=== PATIENT | male | born 1965 | race Caucasian/White ===

== ENCOUNTER 2020-05-03 09:10 | Day surgery (SDC) | payer MEDICARE ==
[~2020-05-03] VITALS: Ht 434.3 cm; Wt 76.9 kg
[~2020-05-03 09:10] MED LIST: BACL10 PO; CEPH500 PO; FAMO40 PO; HYDACE5 PO; IBU800 MG PO; IBUP600 PO; IBUP800 PO; MECL25 PO; NAPR500 PO; PERM5TC TOP; PRED20 PO; PROM25 PO; TRAM50 PO
--- NOTE | 2020-05-03 10:17 | NUR ---
Patient up to Ambulate independently. Gait steady. Patient states colon prep results clear. History, Chart, Medications and Allergies reviewed before start of procedure.Lungs clear T/O to Auscultation. Patient confirms NPO status and agrees with scheduled surgery. Patient States Post-Procedure ride home has been arranged FROM [facility].
--- NOTE | 2020-05-03 10:36 | NUR ---
05/03/20 1036 HoracioEnrique PATIENT DETERMINED TO BE ASA APPROPRIATE FOR PROPOFOL SEDATION PRIOR TO START OF PROCEDURE BY 3-LEAD EKG REVIEWED WITH PHYSICIAN PRIOR TO START OF PROCEDURE.3-LEAD EKG REVIEWED WITH PHYSICIAN PRIOR TO START OF PROCEDURE.Patient to ENDO 1History, Chart, Medications and Allergies reviewed before start of procedure.MONITOR INTACT WITH CONTINUOUS PULSE OXIMETRY AND INTERMITTENT BP.O2 VIA N/C INTACT THROUGHOUT SEDATION/PROCEDURE.
--- NOTE | 2020-05-03 11:04 | NUR ---
PT TO STEP. DENIES C/O PAIN OR NAUSEA. ADVISED TO PASS AIR IF ABLE.
--- NOTE | 2020-05-03 11:22 | NUR ---
WRITTEN AND VERBAL D/C INSTRUCTIONS GIVEN TO PT WITH STATED UNDERSTANDING.
== END 2020-05-03 11:35 | disposition home or self-care (01) ==
LOC: ORSCMMR 09:10 → ORD 10:00 → ORSCMMR 10:00
PROVIDERS: Internal Medicine Gastroenterology
PROC: 0DJD8ZZ Inspection of Lower Intestinal Tract, Via Natural or Artificial Opening Endoscopic (ICD-10-PCS; principal; 2020-05-03 10:00)
DX: Z12.11 Encounter for screening for malignant neoplasm of colon (principal); Z86.010 Personal history of colon polyps; Z87.898 Personal history of other specified conditions; Z86.19 Personal history of other infectious and parasitic diseases; F17.210 Nicotine dependence, cigarettes, uncomplicated; Z87.11 Personal history of peptic ulcer disease
CPT/HCPCS: J2250; J2704; J7120

== ENCOUNTER 2025-04-10 06:15 | Emergency (ER) | payer MEDICARE ==
[~2025-04-10] VITALS: Ht 177.8 cm; Wt 79.4 kg
[2025-04-10 06:31] VITALS: BP 150/93
[2025-04-10] MEDS ORDERED: Ketorolac Tromethamine 30mg Vial IV ONE (06:55)
[2025-04-10] MEDS ORDERED: Dexamethasone Sod Phos 10 MG/ML 1ML VIAL IV ONE (06:55)
[2025-04-10] MEDS ORDERED: NAPR500 PO (07:47)
[2025-04-10] MEDS ORDERED: PRED20 PO (07:47)
[2025-04-10] MEDS ORDERED: CYCL10 PO (07:47)
== END 2025-04-10 07:52 | disposition home or self-care (01) ==
LOC: ER 06:15
DX: S16.1XXA Strain of muscle, fascia and tendon at neck level, initial encounter (principal); M62.838 Other muscle spasm; X50.1XXA Overexertion from prolonged static or awkward postures, initial encounter
CPT/HCPCS: 96374; 96375; 99283-25; A9270; J1100; J1885

== ENCOUNTER 2025-05-22 06:25 | Day surgery (SDC) | payer MEDICARE ==
[2025-05-22] VITALS (16 sets, daily range): BP systolic 91–175; BP diastolic 60–115
[~2025-05-22] VITALS: Ht 177.8 cm; Wt 77.3 kg
[~2025-05-22 06:25] MED LIST changes: +CYCL10 PO
[2025-05-22] MEDS ORDERED: ASPI81CH PO (06:52)
[2025-05-22] MEDS ORDERED: ATOR10 PO (06:53)
--- NOTE | 2025-05-22 07:14 | NUR ---
Ambulatory in Day Surgery WITH STE[facility] GA[facility]. History, Chart, Medications and Allergies reviewed before start of procedure. Pre-Op teaching done. Pt verbalizes understanding. Patient States Post-Procedure ride home has been arranged WITH [facility]. PT REPORTS LEAVING HIS DENTURES AT HOME. SEDATION RN NOTIFIED OF PT REPORTING BEING A SMOKER AND USES [employer] DAILY.
--- NOTE | 2025-05-22 07:25 | NUR ---
05/22/25 0725 Christina Fernandez CONFIRMED AND REVIEWED H&P, MEDCICATIONS, ALLERGIES, MEDICAL HISTORY, RESPIRATORY HISTORY, VITAL SIGNS, 3-LEAD EKG, CONSENTS, AND PHYSICIAN ORDERS. PATIENT CONFIRMS NPO STATUS AND AGREES WITH SCHEDULED PROCEDURE. MONITOR INTACT WITH CONTINUOUS PULSE OXIMETRY, CAPNOGRAPHY, 3-LEAD EKG, INTERMITTENT BP. SUPPLEMENTAL O2 TO BE TITRATED THROUGHOUT PROCEDURE TO MAINTAIN O2 SATURATION ABOVE 90%. PATIENT DETERMINED TO BE ASA APPROPRIATE FOR PROPOFOL SEDATION PRIOR TO START OF PROCEDURE BY DR. LAZCANO.
[2025-05-22] MEDS ORDERED: Midazolam HCl 1MG / ML 2ML Vial ONE ×2 (07:26→07:49)
[2025-05-22] MEDS ORDERED: FentaNYL Citrate 50 MCG/ML 2 ML Injection ONE (07:51)
[2025-05-22] MEDS ORDERED: Ondansetron HCl 2 MG / ML 2ML Vial ONE (07:53)
--- NOTE | 2025-05-22 08:33 | NUR ---
Patient States Post-Procedure ride home has been arranged. Discharge instructions reviewed with patient. Patient verbalizes understanding. Copy given to patient to take home. Vital signs have reterned to baseline, patient denies pain.
== END 2025-05-22 23:00 | disposition home or self-care (01) ==
LOC: ORSCMMR 06:25 → ORD 07:30 → ORSCMMR 07:30
PROVIDERS: Internal Medicine Gastroenterology
PROC: 0DBN8ZX Excision of Sigmoid Colon, Via Natural or Artificial Opening Endoscopic, Diagnostic (ICD-10-PCS; principal; 2025-05-22 07:30)
DX: Z12.11 Encounter for screening for malignant neoplasm of colon (principal); K63.5 Polyp of colon; K57.30 Diverticulosis of large intestine without perforation or abscess without bleeding; Z86.0101 Personal history of adenomatous and serrated colon polyps; Z80.0 Family history of malignant neoplasm of digestive organs; Z87.11 Personal history of peptic ulcer disease; E78.00 Pure hypercholesterolemia, unspecified; Z86.19 Personal history of other infectious and parasitic diseases; J44.9 Chronic obstructive pulmonary disease, unspecified; Z79.899 Other long term (current) drug therapy; F17.210 Nicotine dependence, cigarettes, uncomplicated
CPT/HCPCS: 88305; J2250; J2405; J2704; J3010; J7120